=== PATIENT | male | born 1960 | race Caucasian/White ===

== ENCOUNTER 2018-07-29 07:22 | Emergency (ER) | payer OTHER ==
[~2018-07-29] VITALS: Ht 170.2 cm; Wt 107.3 kg
[2018-07-29] MEDS ORDERED: PRAV40TA2 PO (07:32)
[2018-07-29] MEDS ORDERED: ASPI81CH33 PO (07:32)
[2018-07-29] MEDS ORDERED: METO50TA7 PO (07:32)
[2018-07-29 08:33] LABS: HEMATOCRIT 48.3 % (42.0-52.0); MEAN CORPUSCULAR HEMOGLOBIN 35.7 pg (27.0-33.0); MEAN CORPUSCULAR HGB CONC 35.2 g/dl (32.0-36.5); MEAN CORPUSCULAR VOLUME 101.5 fl (80.0-96.0); PLATELET COUNT, AUTOMATED 174 10^3/uL (150-450); RED BLOOD COUNT 4.76 10^6/uL (4.30-6.10); WHITE BLOOD COUNT 12.4 10^3/uL (4.0-10.0)
[2018-07-29 08:58] LABS: ALBUMIN 3.8 GM/DL (3.2-5.2); BILIRUBIN,DIRECT 0.3 MG/DL (0.0-0.2); BILIRUBIN,TOTAL 1.2 MG/DL (0.2-1.0); TOTAL PROTEIN 7.7 GM/DL (6.4-8.2)
--- NOTE | 2018-07-29 09:25 | REP ---
LUMBAR SPINE, FIVE VIEWS: HISTORY: Vertebral tenderness. There is no acute fracture or subluxation. The L2-3 through L5-S1 intervertebral discs are decreased in height. Vacuum phenomenon is present at the L4-5 level. These findings are consistent with disc degeneration. Osteophytes are present on L3 through L5. The facet joints are normal in appearance. A calcification is present in the mid left lateral abdomen. IMPRESSION: Degenerative change as described above. Electronically Signed by Elías Lynn MD 07/29/2018 09:26 A
[2018-07-29] MEDS ORDERED: NS 1,000 ML IV ONE (09:30)
--- NOTE | 2018-07-29 09:52 | REP ---
CT ABDOMEN AND PELVIS WITHOUT CONTRAST: HISTORY: Rule out kidney stone. The liver, gallbladder, pancreas, spleen, adrenal glands and right kidney are normal in appearance. Calcification is present in the left kidney consistent with nephrolithiasis. There is mild dilatation of the left renal collecting system and ureter. This is secondary to a 3 mm calculus present in the distal left ureter 15 mm proximal to the left ureterovesical junction. A 2.7 cm midline fat-containing ventral abdominal hernia is present. The visualized lungs are clear. The prostate gland and urinary bladder are normal in appearance. Fat containing inguinal hernias larger on the left than the right are present. Degenerative change is present in the spine. IMPRESSION: 1. Left nephrolithiasis. 2. There is a 3 mm calculus in the distal left ureter 15 mm proximal to the right ureterovesical junction. There is mild hydronephrosis. 3. 2.7 cm fat containing ventral abdominal hernia. 4. There are bilateral fat-containing inguinal hernias, larger on the left than on the right. Electronically Signed by Elías Lynn MD 07/29/2018 09:57 A
[2018-07-29 10:29] VITALS: BP 132/78
[2018-07-29] MEDS ORDERED: FLOM0.4C39 PO (10:29)
== END 2018-07-29 10:42 | disposition home or self-care (01) ==
LOC: M ED 07:22 → EDBD 07:22 → M ED 10:42
DX: N20.1 Calculus of ureter (principal); N20.0 Calculus of kidney; N13.39 Other hydronephrosis; K40.20 Bilateral inguinal hernia, without obstruction or gangrene, not specified as recurrent; K43.9 Ventral hernia without obstruction or gangrene; M51.37 Other intervertebral disc degeneration, lumbosacral region; M51.36 Other intervertebral disc degeneration, lumbar region; R11.0 Nausea; I10 Essential (primary) hypertension; E78.5 Hyperlipidemia, unspecified; Z87.442 Personal history of urinary calculi; Z88.0 Allergy status to penicillin; Z79.899 Other long term (current) drug therapy; Z79.82 Long term (current) use of aspirin

== ENCOUNTER → 2019-03-26 | Outpatient (REF) | payer OTHER ==
[~2019-03-26] MED LIST: ASPI81CH33 PO; FLOM0.4C39 PO; METO50TA7 PO; PRAV40TA2 PO
[2019-03-26 14:14] LABS: APPEARANCE, URINE HAZY (CLEAR); BILIRUBIN, URINE AUTO NEGATIVE (NEGATIVE); BLOOD, URINE BLOOD NEGATIVE (NEGATIVE); COLOR, URINE YELLOW (YELLOW); GLUCOSE, URINE (UA) AUTO NEGATIVE (NEGATIVE); KETONE, URINE AUTO NEGATIVE (NEGATIVE); LEUKOCYTE ESTERASE, URINE AUTO NEGATIVE (NEGATIVE); NITRITE, URINE AUTO NEGATIVE (NEGATIVE); PROTEIN, URINE AUTO NEGATIVE (NEGATIVE); RBC, URINE AUTO 1 /HPF (0-3); SPECIFIC GRAVITY URINE AUTO 1.014 (1.002-1.035); WBC, URINE AUTO 3 /HPF (0-3)
[2019-03-26 14:15] LABS: BACTERIA, URINE AUTO NEGATIVE (NEGATIVE); MUCUS, URINE SMALL (NEGATIVE); SQUAMOUS EPITHELIAL CELL UR AU 0 /HPF (0-6)
== END ==
LOC: M SMT 13:47
PROVIDERS: ATTEND Urology
DX: R35.1 Nocturia (principal)

== ENCOUNTER → 2019-04-02 | Outpatient (CLI) | payer OTHER ==
--- NOTE | 2019-04-02 14:55 | REP ---
URINARY TRACT SONOGRAPHY: HISTORY: Kidney stones. Nocturia. Comparison CT study July 29, 2018. SONOGRAPHIC FINDINGS: Scanning at the level of the urinary bladder shows no abnormality. Emptying ureteral jets are confirmed on color Doppler interrogation of the bladder lumen. Renal cortical echogenicity pattern is normal bilaterally. There is no evidence of hydronephrosis on either side. Right renal dimensions are 11.1 x 5.5 x 5.5 cm. Left kidney measures 11.1 x 4.9 x 5.7 cm. There is an echogenic focus in the lower pole left kidney with acoustic shadowing consistent with a calculus. This is fairly large measuring at least 9 mm. This corresponds to the large intrarenal calculus in the lower pole of the left kidney on comparison CT study. No renal mass or cyst is seen. IMPRESSION: Intrarenal calculus lower pole left kidney again noted. No hydronephrosis seen. Otherwise negative. Electronically Signed by Rocky Hood MD 04/02/2019 05:26 P
== END ==
LOC: M RAD 13:46
PROVIDERS: ATTEND Urology
DX: R35.1 Nocturia (principal); N20.0 Calculus of kidney

== ENCOUNTER → 2019-11-06 | Outpatient (CLI) | payer OTHER ==
--- NOTE | 2019-11-14 14:05 | SLEEPHOME ---
DATE: 11/06/2019 ORDERED BY: Dr. Alondra Santiago Diagnostic home sleep testing was performed due to concern for the obstructive sleep apnea syndrome. For testing, a nocturnal T3 respiratory monitoring device was used. Continuous record was made of pulse, oxygen saturation, air flow, chest and abdominal pain strain, and body position. There was 9 hours and 59 minutes of data reviewed. There was 7 hours and 18 minutes marked as time in bed. During the interval marked time in bed, there were 419 respiratory events identified of 10 seconds in duration or greater for a respiratory event index of 57.3. The events were primarily obstructive but 75 mixed and central apneas were also seen. Baseline pulse rate 79. Pulse rate ranged 46-196, and baseline saturation 88%. Saturations fell to 75%. Testing was performed in both the supine and nonsupine positions. IMPRESSION: Abnormal diagnostic home sleep testing with repetitive respiratory events and oxygen desaturations to 75% with a respiratory event index of 56.7 is consistent with the obstructive sleep apnea syndrome. RECOMMENDATION: The patient should be encouraged to undergo formal sleep evaluation. [facility]
== END ==
LOC: M SLEEP HO 11:17
PROVIDERS: ATTEND Nurse Practitioner Family
DX: R40.0 Somnolence (principal)

== ENCOUNTER → 2020-01-22 | Outpatient (CLI) | payer OTHER ==
--- NOTE | 2020-01-24 10:49 | SLEEPCENT ---
NOCTURNAL POLYSOMNOGRAPHY [facility] DATE: 01/22/2020 ORDERED BY: PATIENCE Davenport Nocturnal polysomnography was performed for the titration of pressure therapy in this patient with a clinical history of obstructive sleep apnea syndrome confirmed by home sleep testing which revealed a respiratory event index of 56.7. For testing, the patient was fit with a ResMed AirFit F20 full face mask of large size, 4 cm of water pressure were applied to the circuit, and the lights were extinguished. Seven hours and 21 minutes of data were reviewed. There were 319 minutes of sleep identified. Sleep latency was normal at 10.5 minutes. REM latency was short at 39 minutes. Sleep architecture was good with four REM cycles. Overall sleep efficiency was 73.1%. The electrocardiogram showed a sinus rhythm with an average heart rate of 68 beats per minute. EEG showed normal waveforms for wake and sleep. Respiratory events were found best palliated with CPAP at a pressure of +13 and remaining measures of sleep physiology were normal. IMPRESSIONS: Obstructive sleep apnea syndrome (G47.33). RECOMMENDATION: Nightly use of pressure therapy 13 cm of water. Raza Domingo MD
== END ==
LOC: M SLEEP 20:00
PROVIDERS: ATTEND Nurse Practitioner Family
DX: G47.33 Obstructive sleep apnea (adult) (pediatric) (principal)

== ENCOUNTER 2021-12-22 01:25 | Emergency (ER) | payer OTHER ==
[~2021-12-22] VITALS: Ht 165.1 cm; Wt 109.1 kg
[2021-12-22 07:57] LABS: BASO # 0.1 10^3/uL (0.0-0.2); BASO % 0.7 % (0.0-1.0); EOS # 0.1 10^3/uL (0.0-0.5); EOS % 1.5 % (0.0-3.0); HEMATOCRIT 44.7 % (42.0-52.0); HEMOGLOBIN 15.5 g/dl (13.5-17.5); LYMPH # 2.2 10^3/uL (1.5-5.0); LYMPH % 26.6 % (24.0-44.0); MEAN CORPUSCULAR HEMOGLOBIN 34.2 pg (27.0-33.0); MEAN CORPUSCULAR HGB CONC 34.7 g/dl (32.0-36.5); MEAN CORPUSCULAR VOLUME 98.7 fl (80.0-96.0); MONO # 0.6 10^3/uL (0.0-0.8); MONO % 7.1 % (2.0-8.0); NEUTROPHILS # 5.2 10^3/uL (1.5-8.5); NEUTROPHILS % 63.9 % (36.0-66.0); PLATELET COUNT, AUTOMATED 240 10^3/uL (150-450); RED BLOOD COUNT 4.53 10^6/uL (4.30-6.10); WHITE BLOOD COUNT 8.1 10^3/uL (4.0-10.0)
[2021-12-22 08:11] LABS: APPEARANCE, URINE MANUAL CLEAR (CLEAR); COLOR, URINE MANUAL YELLOW (YELLOW); SPECIFIC GRAVITY,URINE MANUAL 1.015 (1.002-1.035)
[2021-12-22 08:16] LABS: BILIRUBIN, URINE MANUAL NEGATIVE (NEGATIVE); BLOOD URINE MANUAL TRACE (NEGATIVE); GLUCOSE, URINE (UA) MANUAL NEGATIVE (NEGATIVE); KETONE, URINE MANUAL NEGATIVE (NEGATIVE); LEUKOCYTE ESTERASE, URINE MAN POSITIVE (NEGATIVE); NITRITE, URINE MANUAL NEGATIVE (NEGATIVE); PROTEIN, URINE MANUAL TRACE mg/dL (NEGATIVE); UROBILINOGEN, URINE MANUAL NORMAL (NORMAL)
[2021-12-22 08:22] LABS: BACTERIA, URINE SMALL AMOUNT; HYALINE CAST, URINE NONE SEEN /lpf (0-1); SQUAMOUS EPITHELIAL CELL URINE SMALL AMOUNT /hpf (SMALL AMT); TRANSITIONAL EPI CELLS, URINE SMALL AMOUNT /hpf
[2021-12-22 08:32] LABS: CALCIUM LEVEL 9.5 MG/DL (8.8-10.2); CREATININE FOR GFR 1.43 MG/DL (0.70-1.30); GLOMERULAR FILTRATION RATE 53.2 (>49); POTASSIUM SERUM 4.5 MEQ/L (3.5-5.1)
[2021-12-22] MEDS ORDERED: NS 1,000 ML IV ONE (09:40)
[2021-12-22 11:23] VITALS: BP 132/72
== END 2021-12-22 11:24 | disposition home or self-care (01) ==
LOC: M ED 01:25
DX: M50.21 Other cervical disc displacement, high cervical region (principal); M50.221 Other cervical disc displacement at C4-C5 level; M50.222 Other cervical disc displacement at C5-C6 level; M50.223 Other cervical disc displacement at C6-C7 level; M54.12 Radiculopathy, cervical region; E86.0 Dehydration; R42 Dizziness and giddiness; I10 Essential (primary) hypertension; Z88.0 Allergy status to penicillin; N40.0 Benign prostatic hyperplasia without lower urinary tract symptoms; E78.5 Hyperlipidemia, unspecified; Z79.82 Long term (current) use of aspirin; Z79.899 Other long term (current) drug therapy